=== PATIENT | male | born 1940 | race Caucasian/White ===

== ENCOUNTER 2018-06-04 08:19 | Inpatient (IN) ==
--- NOTE | 2018-05-14 11:55 | Anesthesiology Consultation ---
Date of Service May 14, 2018 Assessment & Plan (1) Encounter for pre-operative examination: Chart Review Chart Review: Acceptable Risk for Surgery and Patient seen in Pre Admission Testing Teaching & Discussion Pre-Anesthesia Teaching/Discussion Notes: Instructed NPO after midnight before surgery,except medications with 15 cc of water. Medication instructions provided according to the PAT guidelines. History Surgery Operation Date: 06/04/18 09:55 Proposed Procedures p L4-L5 Decompression and Fusion - Vivek Costa DO Height/Weight Height: 5 ft 8 in Weight: 76.1 kg Allergies Allergy/AdvReac Type Severity Reaction Status Date / Time No Known Allergies Allergy Verified 03/27/18 12:07 Medications Home Medications Medication Instructions Recorded Confirmed Last Taken lisinopril 20 mg PO QAM 01/11/18 05/10/18 03/27/18 simvastatin 80 mg PO HS 01/11/18 05/10/18 03/26/18 aspirin 81 mg PO QAM 03/27/18 05/10/18 03/27/18 Past Medical History Medical History Hearing deficit WEARS HEARING AIDS Hyperlipidemia Hypertension Osteoarthritis Past Surgical History Surgical History History of colonoscopy 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= SAB X 1 AT [facility] 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 Hx of tooth extraction Past Anesthesia History No Hx of Anesthesia Complications and No Family Hx of Anesthesia Complications History of PONV No Motion Sickness Screening History of Motion Sickness: No Social History Smoking Status: Former smoker tobacco type: cigarettes Smoking cigarettes per day: HX OF SOCIAL USE, QUIT >30 YEARS AGO Do You Dip or Chew Tobacco: No Hx Alcohol Use: Yes alcohol intake frequency: holidays/special occasions only Hx Substance Use: No substance use type: does not use Exercise / Class Metabolic Activity III < 4 Walking/Shop/Light housework Review of Systems LBP with intermittent LLE radiculopathy. Patient denies chest pain, shortness of breath, reflux, cough, wheezing, palpitations. Physical Exam Vital Signs VITALS BP 108/68 P 66 TEMP 97.7 SP02 95%RA RESP 20 PHYSICAL Mildly decreased cervical extension Full TMJ range of motion. TMD 3.5 finger breaths Mallampati Score 2 Dentition: full dentures on upper; partial on lower; only three remaining teeth on lower Lungs: clear throughout to auscultation Cardiac: regular rate and rhythm, no murmurs noted Spine: normal Carotid arteries: negative bruit Extremities: no edema, s/p left index finger amputation Testing Electrocardiogram Date: 01/17/18 Findings: + NSR @ (60) Chest X-Ray Date: 01/17/18 Findings: + NAD Laboratory Results 05/14/18 12:12 05/14/18 12:12 Blood Type A Positive 05/14/18 12:12 Antibody Screen NEGATIVE 05/14/18 12:12 PT 10.6 Seconds (9.0-12.0) 05/14/18 12:12 INR 1.0 (0.9-1.1) 05/14/18 12:12 APTT 24.1 Seconds (21.0-31.0) 05/14/18 12:12 Urine Color Yellow 05/14/18 Unknown Urine Appearance Clear (Clear) 05/14/18 Unknown Urine pH 6.5 (4.5-7.5) 05/14/18 Unknown Ur Specific [place] 1.017 (1.000-1.030) 05/14/18 Unknown Urine Protein Negative (Negative) 05/14/18 Unknown Urine Glucose (UA) Negative (Negative) 05/14/18 Unknown Urine Ketones Negative (Negative) 05/14/18 Unknown Urine Nitrite Negative (Negative) 05/14/18 Unknown Ur Leukocyte Esterase Negative (Negative) 05/14/18 Unknown
--- NOTE | 2018-05-14 12:10 | PAT Medication Instructions ---
Medication Instructions Date of Service May 14, 2018 Home Medications Aspirin 81mg PO QAM Lisinopril 20mg PO QAM Simvastatin 80mg PO HS DO NOT take the morning of surgery Lisinopril 20mg PO QAM Take morning of surgery With a small sip of water, OTHERWISE NOTHING TO EAT OR DRINK AFTER MIDNIGHT: Aspirin 81mg PO QAM Take evening before surgery Simvastatin 80mg PO HS Other Notes If you have any questions please call us at [phone] or [phone] or [phone] or [phone]
[2018-05-14 13:09] LABS: Basophils # (auto) 0.04 K/uL (0-0.2); Basophils % (auto) 0.6 %; Eosinophils # (auto) 0.27 K/uL (0-0.5); Eosinophils % (auto) 3.9 %; Hematocrit (blood only) 44.3 % (42-52); Hemoglobin 14.3 g/dL (14.0-18.0); Immature Granulocytes # (auto) 0.01 K/uL (0.00-0.02); Immature Granulocytes % (auto) 0.1 %; Lymphocytes # (auto) 1.79 K/uL (1.2-3.4); Lymphocytes % (auto) 25.7 %; Mean Corpuscular Hgb Conc 32.3 g/dL (32-36); Mean Platelet Volume 10.5 fL (7.4-10.4); Monocytes # (auto) 0.79 K/uL (0.11-0.59); Monocytes % (auto) 11.3 %; Neutrophils # (auto) 4.07 K/uL (1.4-6.5); Neutrophils % (auto) 58.4 %; Platelet Count 232 K/uL (130-400); RDW Coefficient of Variation 14.3 % (11.5-14.5); RDW Standard Deviation 46.4 fL (36.4-46.3); Red Blood Count 4.98 M/uL (4.7-6.1); White Blood Count 6.97 K/uL (4.8-10.8)
[2018-05-14 13:14] LABS: Appearance Urine Clear (Clear); Bilirubin Urine Negative (Negative); Blood Urine Negative (Negative); Color Urine Yellow; Glucose Urine UA Negative (Negative); Ketones Urine Negative (Negative); Leukocyte Esterase Urine Negative (Negative); Nitrite Urine Negative (Negative); Protein Urine Negative (Negative); Specific Gravity Urine 1.017 (1.000-1.030); Urobilinogen Urine Negative (Negative); pH Urine 6.5 (4.5-7.5)
[2018-05-14 13:27] LABS: Partial Thromboplastin Ratio 0.9; Partial Thromboplastin Time 24.1 Seconds (21.0-31.0); Prothrombin Time 10.6 Seconds (9.0-12.0)
[2018-05-14 13:51] LABS: BUN Creatinine Ratio 15.9 (10-20); Creatinine Clr Calc Pharmacy 62.7 ml/min; Est GFR (African American) 87.5; Est GFR (Non-African American) 75.5
[~2018-06-04 08:19] MED LIST: ACETAMINOPHEN 500 MG TAB PO SCH; CEFAZOLIN 1000MG 1,000 MG/7.5 ML SYR IV SCH; CeleBREX 200 MG CAP PO SCH; GABAPENTIN 300 MG PO SCH; HYDROmorphone INJ 2 MG/ML SYR/VIAL ONE; LR 15ML/HR IV SCH; MIDAZOLAM HCL 1 MG/ML 2ML VIAL ONE; fentaNYL citrate 100 MCG/2 ML VIAL ONE
[2018-06-04] MEDS ORDERED: HYDROmorphone INJ 2 MG/ML SYR/VIAL ONE (08:35)
[2018-06-04] MEDS ORDERED: fentaNYL citrate 100 MCG/2 ML VIAL ONE ×3 (08:35→11:33)
[2018-06-04] MEDS ORDERED: NEOSTIGMINE METHYLSULFATE 1 MG/ML 10ML VIAL ONE (08:36)
[2018-06-04] MEDS ORDERED: DEXAMETHASONE SOD INJ 4 MG/ML VIAL ONE (08:36)
[2018-06-04] MEDS ORDERED: LIDOCAINE HCL 2% 2 ML VIAL/AMP(20MG/ML) INFIL ONE (08:36)
[2018-06-04] MEDS ORDERED: ONDANSETRON INJ 2 MG/ML 2 ML VIAL ONE ×2 (08:36→13:08)
[2018-06-04] MEDS ORDERED: GLYCOPYRROLATE 0.2 MG/ML VIAL ONE (08:36)
[2018-06-04] MEDS ORDERED: PROPOFOL IV EMULSION 10 MG/ML 20 ML VIAL IV ONE (08:36)
[2018-06-04] MEDS ORDERED: LARYING-O-JET KIT (LTA) ONE ×2 (08:36→13:39)
[2018-06-04] MEDS ORDERED: ONDANSETRON INJ 2 MG/ML 2 ML VIAL IV PRN ×2 (09:21→14:26)
[2018-06-04] MEDS ORDERED: ePHEDrine sulfate 50 MG/ML AMP IV PRN (09:21)
[2018-06-04] MEDS ORDERED: HYDROmorphone INJ 1 MG/ML SYRINGE IV PRN (09:21)
[2018-06-04] MEDS ORDERED: LABETALOL HCL IV 5 MG/ML 20ML IV PRN (09:21)
[2018-06-04] MEDS ORDERED: MEPERIDINE HCL 25 MG/ML CARP IV PRN (09:21)
[2018-06-04] MEDS ORDERED: fentaNYL citrate 100 MCG/2 ML VIAL IV PRN (09:21)
[2018-06-04] MEDS ORDERED: PHENYLEPHRINE 100MCG/ML 5ML SYR IV PRN (09:21)
[2018-06-04] MEDS ORDERED: ATROPINE SULFATE 0.1 MG/ML 10ML SYR IV PRN (09:21)
--- NOTE | 2018-06-04 10:34 | History & Physical Bridge Note ---
Date of Service June 04, 2018 History & Physical Bridge Note I have examined the patient, reviewed the History & Physical and in the interval since the performance of the History & Physical I have noted the following changes of clinical significance: no changes noted
--- NOTE | 2018-06-04 10:36 | History & Physical Report ---
Date of Service June 04, 2018 Assessment & Plan (1) Spinal stenosis, lumbar region with neurogenic claudication: L4-5 decompression fusion Present on Admission?: Yes History of Present Illness Chief Complaint: Back and leg pain Primary Care Provider: Joyce Guadarrama This is a 77-year-old male that presents with back and leg pain. After failing extensive course of nonoperative care is here for surgical intervention. Allergies Allergy/AdvReac Type Severity Reaction Status Date / Time No Known Allergies Allergy Verified 06/04/18 08:46 Home Medications Home Medications Medication Instructions Recorded Confirmed Type lisinopril 20 mg PO QAM 01/11/18 05/10/18 History simvastatin 80 mg PO HS 01/11/18 06/04/18 History aspirin 81 mg PO QAM 03/27/18 05/10/18 History Past Med/Surg History Social History Preferred Language: Cambodian Communication Ability: Effective Ceo Na Required: No Beliefs That Will Affect Care: None Current Living Situation: Significant Other Other Information That Helps Us Care for You: No Feels Safe at Home: Yes Safety Concerns: Feels Safe At This Time Smoking Status: Former smoker Hx Alcohol Use: Yes Hx Substance Use: No Physical Exam Vital Signs (Past 24 Hours): Last Vital Signs Temp 36.4 C L 06/04/18 08:49 Pulse 68 06/04/18 08:49 Resp 16 06/04/18 08:49 BP 165/81 H 06/04/18 08:49 Pulse Ox 97 06/04/18 08:49 Results & Data Medications Administered Acetaminophen (Tylenol) 1,000 mg PO PREOP MAGDI Stop: 06/04/18 18:00 Last Admin: 06/04/18 09:03 Dose: 1,000 mg Documented by: [id number] Celecoxib (Celebrex) 200 mg PO PREOP MAGDI Stop: 06/04/18 18:00 Last Admin: 06/04/18 09:04 Dose: 200 mg Documented by: [id number] Gabapentin (Neurontin) 300 mg PO PREOP MAGDI Stop: 06/04/18 18:00 Last Admin: 06/04/18 09:03 Dose: 300 mg Documented by: [id number] Lactated Ringer's (Lr) 1,000 mls @ 15 mls/hr IV .Q24H MAGDI Stop: 06/05/18 05:59 Last Admin: 06/04/18 09:03 Dose: 15 mls/hr Documented by: [id number]
[2018-06-04] MEDS ORDERED: BUPIVACAINE/EPINEPHRINE 0.5% MPF 1:200,000 30 ML VIAL ONE (10:54)
[2018-06-04] MEDS ORDERED: BACITRACIN INJ 50,000 UNIT VIAL ONE (10:54)
[2018-06-04] MEDS ORDERED: CEFAZOLIN 250 MG/ML 1 GM VIAL ONE (11:20)
[2018-06-04] MEDS ORDERED: PHENYLEPHRINE 100MCG/ML 5ML SYR ONE (11:53)
[2018-06-04] MEDS ORDERED: ePHEDrine sulfate 50 MG/ML SYR ONE (11:53)
[2018-06-04] MEDS ORDERED: FLOSEAL HEMOSTATIC MATRIX 10ML TOP ONE (11:55)
[2018-06-04] MEDS ORDERED: KETOROLAC 30 MG/ML VIAL ONE (12:44)
--- NOTE | 2018-06-04 12:46 | Operative Report ---
Post Operative Report Pre & Post Diagnosis Operation Date: 06/04/18 10:35 Pre-Op Diagnosis: Spinal stenosis, lumbar region with neurogenic claudication Post-Op Diagnosis: Spinal stenosis, lumbar region with neurogenic claudication Procedure Operation Date: 06/04/18 10:35 Actual Procedures #1 lumbar decompression medial facetectomy foraminotomy L3-4 L4-5 per #2 posterior spinal fusion L4-5 per #3 placed posterior instrumentation L4-5 per #4 interbody fusion L4-5 per #5 placement of titanium 12 x 26 mm cage L4-5. #6 placement of local autograft in the posterior lateral gutters. #7 placement Feese collagen sponge bone mass graft in the posterior lateral gutters and ostial amp in the interbody space. Surgeon Vivek Costa DO Hardening Machine Operator Helper Shannon Green Estimated Blood Loss 150 Findings Consistent with Post-Op Diagnosis Specimens None Description of Procedure Patient was met with preoperatively case discussed all questions addressed. After informed consent obtained patient was taken to the operative suite underwent intubation and placed in a prone position on the Kody table on top of the Vishnu frame. All bony prominences well-padded eyes inspected to ensure no external pressure placed upon the bed at this point the lumbar spine was prepped and draped in the normal sterile fashion. Sharp dissection with the assistance of Bovie cautery was performed down to and exposing the lamina and transverse processes of L4-5. From a caudal cephalad fashion complete laminectomy of L4 partial laminectomy of L3 was performed including bilateral medial facetectomies foraminotomies addressing severe stenosis as well as bilateral facet cyst. They removed in their entirety for complete decompression. Pedicle fusion and placed in L4 and L5 bilaterally with assistance of fluoroscopy the purposes nikos placed by way of a transforaminal approach on the left complete discectomy was performed in plate coated to subcortical bleeding bone and a 12 x 26 mm titanium cage filled with ostium bone graft tapped in position. The rods were then locked in final position bilaterally transverse process of L4 and L5 bur to subcortical bleeding bone. Infuse collagen sponge master graft local autograft placed in the posterior lateral gutters. 15 round PARADISE drain inserted. The incision was then closed with 1 Vicryl in the fascia 2-0 Vicryl subtenons in 4 Monocryl for final skin closure. Steri-Strip sterile dressings placed. Patient will continue PACU stable history please note Shannon Green present throughout the entire procedure involved in patient positioning complex portions of the surgery and final skin closure. I attest to the content of the Intraoperative Record and any orders documented therein. Any exceptions are noted below.
--- NOTE | 2018-06-04 13:03 | Fluoroscopy Report ---
FL lumbar spine 2-3V HISTORY: 77 years-old Male L4-5 DECOMPRESSION/FUSION status post fusion of the lower cervical spine. Chronic low back pain COMPARISON: None available TECHNIQUE: 2 spot fluoroscopic images of the lumbar spine were obtained utilizing 9.5 seconds fluoros copy time FINDINGS: Prior laminectomy with discectomy and posterior interbody nikos and screw fusion at L4-L5. Alignment ap pears satisfactory. Disc space narrowing with spondylitic spurring noted at L5-S1 and L3-L4. IMPRESSION: Fluoroscopic images as above. Please see operative report for further details. The above report was generated using voice recognition software. It may contain grammatical, syntax o r spelling errors. Electronically signed by: Armani Ortega M.D. 06/04/2018 1:02 PM
[2018-06-04] MEDS ORDERED: METOCLOPRAMIDE HCL INJ 5 MG/ML 2 ML VIAL ONE (13:08)
[2018-06-04] MEDS ORDERED: ESMOLOL HCL INJ 10 MG/ML 10ML VIAL IV ONE (13:08)
--- NOTE | 2018-06-04 13:35 | Anesthesiology Progress Note ---
Date of Service June 04, 2018 Anesthesia Post Procedure Vital Signs Vital Signs: Temp Pulse Pulse Resp BP Pulse Ox 06/04/18 13:30 65 21 138/64 98 06/04/18 13:20 62 12 141/68 H 98 06/04/18 13:10 76 14 150/67 H 98 06/04/18 13:01 36.5 C 78 7 L 144/75 H 99 06/04/18 08:49 36.4 C L 68 16 165/81 H 97 Pain Intensity Back: Pain Intensity: 3 Notes Mental Status: alert / awake / arousable Patient Amnestic to Procedure: Yes Nausea / Vomiting: adequately controlled Pain: adequately controlled Airway Patency, RR, SpO2: stable & adequate BP & HR: stable & adequate Hydration State: stable & adequate Anesthetic Complications: no major complications apparent and Pt Satisfied with anesthetic care Notes: The patient is awake and his vitals are stable.
[2018-06-04] MEDS ORDERED: MAGNESIUM HYDROXIDE SUSP 30 ML UDC PO PRN (14:26)
[2018-06-04] MEDS ORDERED: OXYCODONE HCL IR 5 MG TAB (IMMEDIATE RELEASE) PO PRN (14:26)
[2018-06-04] MEDS ORDERED: METOCLOPRAMIDE HCL INJ 5 MG/ML 2 ML VIAL IV PRN (14:26)
[2018-06-04] MEDS ORDERED: LORazepam 0.5 MG/1 ML VIAL IV PRN (14:26)
[2018-06-04] MEDS ORDERED: DO NOT ADMINISTER FLU VACCINE PRN (14:26)
[2018-06-04] MEDS ORDERED: ONDANSETRON 4 MG TAB PO PRN (14:26)
[2018-06-04] MEDS ORDERED: ACETAMINOPHEN 1,000 MG/100 ML VIAL IV PRN (14:26)
[2018-06-04] MEDS ORDERED: ALUMINUM/MAGNESIUM SUSP 30 ML UDC PO PRN (14:26)
[2018-06-04] MEDS ORDERED: LORazepam 0.5 MG TAB PO PRN (14:26)
[2018-06-04] MEDS ORDERED: SOD PHOSPHATE/SOD BIPHOSPHATE ENEMA 132 ML BTL PR PRN (14:26)
[2018-06-04] MEDS ORDERED: BISACODYL 10 MG SUPP PR PRN (14:26)
[2018-06-04] MEDS ORDERED: DO NOT ADMINISTER PNEUMOCOCCAL VACCINE PRN (14:26)
[2018-06-04] MEDS ORDERED: FAMOTIDINE 20 MG TAB PO PRN (14:26)
[2018-06-04] MEDS ORDERED: PROMETHAZINE HCL 12.5 MG in SODIUM CHLORIDE 0.9% 50 ML IV PRN (14:26)
[2018-06-04] MEDS ORDERED: HYDROmorphone INJ 0.5 MG/0.5 ML SYR IV PRN (14:26)
[2018-06-04] MEDS: CEFAZOLIN 2000MG 2,000 MG/15 ML SYR IV SCH (18:19)
[2018-06-04] MEDS: DOCUSATE SODIUM/SENNA 50/8.6MG TAB PO SCH (20:53)
[2018-06-04] MEDS: SIMVASTATIN 80 MG TAB PO SCH (20:53)
[2018-06-05] MEDS: LACTATED RINGER'S 1,000 ML IV SCH ×5 (00:35→14:35)
[2018-06-05] MEDS: CEFAZOLIN 2000MG 2,000 MG/15 ML SYR IV SCH (02:19)
[2018-06-05] MEDS: ACETAMINOPHEN 500 MG TAB PO PRN ×2 (02:25→21:46)
[2018-06-05] MEDS: POLYETHYLENE (MIRALAX) 17 GM PACK PO SCH ×4 (06:00→23:38)
[2018-06-05 06:28] LABS: Basophils # (auto) 0.01 K/uL (0-0.2); Basophils % (auto) 0.1 %; Hematocrit (blood only) 38.7 % (42-52); Hemoglobin 12.5 g/dL (14.0-18.0); Immature Granulocytes # (auto) 0.03 K/uL (0.00-0.02); Immature Granulocytes % (auto) 0.3 %; Lymphocytes % (auto) 8.5 %; Mean Corpuscular Hgb Conc 32.3 g/dL (32-36); Mean Platelet Volume 9.8 fL (7.4-10.4); Monocytes # (auto) 1.05 K/uL (0.11-0.59); Monocytes % (auto) 11.2 %; Neutrophils # (auto) 7.52 K/uL (1.4-6.5); Neutrophils % (auto) 79.9 %; Platelet Count 162 K/uL (130-400); RDW Coefficient of Variation 14.6 % (11.5-14.5); RDW Standard Deviation 47.9 fL (36.4-46.3); Red Blood Count 4.35 M/uL (4.7-6.1); White Blood Count 9.41 K/uL (4.8-10.8)
[2018-06-05 07:02] LABS: Calcium 8.6 mg/dl (8.5-10.1); Creatinine Clr Calc Pharmacy 67.6 ml/min; Est GFR (African American) 95.8; Est GFR (Non-African American) 82.7; Potassium 4.3 mmol/L (3.5-5.1)
--- NOTE | 2018-06-05 07:29 | Anesthesiology Progress Note ---
Date of Service June 05, 2018 Anesthesia Post Procedure Vital Signs Vital Signs: Temp Pulse Pulse Pulse Resp BP Pulse Ox 06/05/18 06:49 36.6 C 55 L 18 149/75 H 100 06/05/18 03:27 36.4 C L 65 16 118/71 99 06/04/18 23:34 36.4 C L 62 15 128/68 97 06/04/18 19:07 36.4 C L 61 18 137/74 99 06/04/18 17:23 36.3 C L 66 18 124/70 98 06/04/18 16:14 36.4 C L 50 L 18 143/81 H 99 06/04/18 15:22 36.4 C L 55 L 18 163/81 H 97 06/04/18 14:39 36.5 C 56 L 18 149/74 H 96 06/04/18 14:27 36.4 C L 60 16 137/74 98 06/04/18 14:00 56 L 18 138/67 97 06/04/18 13:45 55 L 13 140/74 98 06/04/18 13:40 36.4 C L 56 L 14 134/72 98 06/04/18 13:30 65 21 138/64 98 06/04/18 13:20 62 12 141/68 H 98 06/04/18 13:10 76 14 150/67 H 98 06/04/18 13:01 36.5 C 78 7 L 144/75 H 99 06/04/18 08:49 36.4 C L 68 16 165/81 H 97 Pain Intensity Back: Pain Intensity: 0 Notes Mental Status: alert / awake / arousable Patient Amnestic to Procedure: Yes Nausea / Vomiting: adequately controlled Pain: adequately controlled Airway Patency, RR, SpO2: stable & adequate BP & HR: stable & adequate Hydration State: stable & adequate Anesthetic Complications: no major complications apparent and Pt Satisfied with anesthetic care
[2018-06-05] MEDS: LISINOPRIL 20 MG TAB PO SCH ×2 (08:51→09:47)
[2018-06-05] MEDS: ASPIRIN 81 MG ECTAB PO SCH (08:51)
--- NOTE | 2018-06-05 11:36 | Orthopedic Progress Note ---
Date of Service June 05, 2018 Assessment & Plan (1) Spinal stenosis, lumbar region with neurogenic claudication: At this time will initiate physical therapy advance his bowel regiment anticipate discharge home in the next few days. Present on Admission?: Yes Subjective Back pain is controlled leg symptoms improved Physical Exam Vital Signs (Past 24 Hours): Last Vital Signs Temp 37.0 C 06/05/18 11:00 Pulse 72 06/05/18 11:00 Resp 18 06/05/18 11:00 BP 142/74 H 06/05/18 11:00 Pulse Ox 95 06/05/18 11:00 Physical Exam: Patient has good strength testing appears comfortable.
[2018-06-05] MEDS: DOCUSATE SODIUM/SENNA 50/8.6MG TAB PO SCH (21:21)
[2018-06-05] MEDS: SIMVASTATIN 80 MG TAB PO SCH (21:21)
[2018-06-06] MEDS: POLYETHYLENE (MIRALAX) 17 GM PACK PO SCH ×2 (04:45→11:54)
[2018-06-06] MEDS: TRAMADOL HCL 50 MG TABLET PO PRN ×2 (07:06→12:33)
[2018-06-06] MEDS: ASPIRIN 81 MG ECTAB PO SCH (07:07)
[2018-06-06] MEDS: LISINOPRIL 20 MG TAB PO SCH (07:07)
--- NOTE | 2018-06-06 12:19 | Discharge Summary ---
Date of Service June 06, 2018 Admission HPI Per Admitting Provider This is a 77-year-old male that presents with back and leg pain. After failing extensive course of nonoperative care is here for surgical intervention. Principal Diagnosis Lumbar spinal stenosis with neurogenic claudication Discharge Data Allergies Allergy/AdvReac Type Severity Reaction Status Date / Time No Known Allergies Allergy Verified 06/04/18 08:46 Consultations 06/04/18 14:26 Consult Case Management - Discharge Planning Routine Procedures Performed Operation Date: 06/04/18 10:35 Actual Procedures p L4-L5 Decompression and Fusion, Interbody Fusion L4-L5; Application of Osteoamp and Bone Morphogenetic Protein(Not Applicable) - Vivek Costa DO Ordered Studies 06/04/18 10:35 FL fluoroscopy <1hr Routine [place] lumbar spine 2-3V Routine Hospital Course (1) Spinal stenosis, lumbar region with neurogenic claudication: Patient underwent lumbar decompression fusion tolerated this well was taken to the orthopedic floor postoperative. Postop day 1 he was up and ambulating nicely. Progressive postop day #2. Pain well controlled. Subsequently discharged home. Discharge orders and instructions found in the chart for further review. Total Time Total Time Spent Total Time Spent (In Minutes): Not applicable Discharge Plan Discharge Items Patient Disposition: Home - Self-Care Reason For Visit: Spinal Stenosis, Lumbar Region without Neurogenic Discharge Diagnosis: lumbar stenosis Discharge Goals: Improve function Activity: Per 'Additional Instructions' section Non-emergency contact: Primary Care Provider Call non-emergency contact if: you have any medication questions Follow-up/Referrals: Joyce Guadarrama PA-C [Primary Care Provider] - Diet: Regular Addtl Provider Instructions: ACTIVITY RECOMMENDATIONS: SELF CARE INSTRUCTIONS AFTER THORACIC/LUMBAR FUSIONS 1. You may walk to your tolerance. It is good exercise for your legs and back. Expect some back and intermittent leg aches and pains. 2. You may perform "counter-top" level activities (make a sandwich, nadege with a project, etc.). 3. No bending or lifting of more than 10 pounds or back twisting of any nature (roll like a log when turning in bed). 4. You may ride in a car for 20-30 minutes at a time. No driving until after your first visit with your doctor. 5. Frequent changes of position and restricting sitting to 30 minutes at a time will help limit the amount of back spasms and stiffness you may experience. 6. You may discontinue the use of ambulatory aids (cane, crutches, etc.) once your strength and confidence allow. 7. You may monkey trainer the shower and let water strike your incision when you arrive home at least once daily. Do not take a tub bath, sit in a hot tub or go into a swimming pool until after your first recheck in the office. SPECIAL CARE INSTRUCTIONS: VERY IMPORTANT TO READ AND REVIEW A. Your surgical incision has been closed with a cosmetic suture under the skin that will dissolve in about 6 weeks. In 14 days, you can use a pair of clean scissors and cut the suture that is left outside of the skin at the ends of your incision. 1. The small skin tapes can be removed 7 days after surgery if they have not fallen off by that point. 2. You may keep the wound open to air as much as possible to promote healing after post-op day number 5 unless told otherwise by your doctor. 3. If you think the wound looks like it is becoming infected (redness or worsening drainage) and/or you are experiencing fever, chill or worsening back pain and muscle spasms, contact the office so that we may norma luate you as soon as possible. B. Complications are uncommon, but please contact us if you have any signs or symptoms of: 1. wound infection (fever higher than 102.5 degrees F, redness, separation of wound, drainage, or increasing pain from the incision) 2. blood clots in legs (pain, swelling, redness and warmth in legs) 3. urinary tract infection (fever higher than 102.5 degrees F, burning upon urination or increased frequency of urination) 4. nerve problems (inability to walk on your toes or heels, numbness, loss of bowel or bladder control) 5. any other symptoms that concern you C. Please call the office at if you have any concerns or questions about your operation or recovery. D. No smoking! Smoking drastically decreases the chance of a solid fusion. E. Do not take any anti-inflammatory medications (Indocin, Advil, Motrin, As pirin, Naprosyn, etc.) as these may inhibit the chance of a solid fusion. Tylenol is okay to take for pain. MANAGING PAIN AFTER SPINAL SURGERY 1. Narcotic medication is intended for short-term use and will be provided for surgical pain. Surgical pain usually lasts for a period of 4-6 weeks. Narcotic medication includes Percocet, Vicodin, Darvocet, Tylenol #3 or Lortab. 2. Longer-term pain is more appropriately treated with non-narcotic medication such as Tylenol ES. 3. Muscle spasm is not appropriately treated with narcotics. Muscle relaxers such as Soma, Flexeril or Skelaxin can be used along with Tylenol ES. 4. Remember that we all live with some "aches and pains". This is not unusual or uncommon after an injury or as we get older. a. Back pain is expected and may include muscle spasms for 4 to 6 weeks after surgery. The pain should gradually improve. If the pain worsens for no apparent reason, please contact the office. b. Intermittent leg pain may also be experienced and should not be concerned about unless it worsens for no apparent reason. If so, please contact the office. 5. We will provide appropriate medication within the normal guidelines of their prescribed use. We will also be very cautious and aware of potential abuse and extended duration of patients' medication needs. a. Pain medications are for your comfort and to assist with sleep and rest so that the tissue can heal. They are not provided in order to return to normal activity and should not be used through the day. To do so or worsening pain at night can result from ongoing tissue damage and development of tolerance to the prescribed medicine. 6. Please allow 2-3 days to process refills. Prescriptions will not be mailed but must be picked up at the office. FOLLOW UP VISIT: Keep your scheduled follow-up appointment. Any questions, please call the office at . Prescriptions: New tramadol 50 mg Tablet 50 mg PO Q4H PRN (Reason: Pain, Moderate) Qty: 30 RF: 0 oxycodone 5 mg Tablet 5 mg PO Q4H PRN (Reason: Pain) Qty: 30 RF: 0 Continued lisinopril 20 mg Tablet 20 mg PO QAM RF: 0 simvastatin 80 mg Tablet 80 mg PO HS RF: 0 aspirin 81 mg Tablet,Delayed Release (Dr/Ec) 81 mg PO QAM RF: 0 Stand-Alone Forms: [facility], Opioid Pain Management Discharge Orders: Discharge Order (Routine); Ordered 06/06/18 Ordered By: Vivek Costa Admission Data Admit Date/Time: 06/04/18 12:53 Attending Provider: Vivek Costa Admit Provider: Vivek Costa Primary Care Provider: Joyce Guadarrama Service: Surgical Services Other Interventions: Discharge Summary Assessment (RN) Last Done: 06/06/18 12:07
== END 2018-06-06 14:21 | disposition home or self-care (01) | DRG 455 ==
LOC: ASU 08:19 → 3E 12:53

== ENCOUNTER 2024-08-23 06:11 | Inpatient (IN) ==
--- NOTE | 2024-08-05 12:57 | PAT Medication Instructions ---
Medication Instructions Date of Service August 05, 2024 Home Medications lisinopril 20 mg tablet 20 mg PO QAM aspirin 81 mg tablet,delayed release 81 mg PO QAM atorvastatin 10 mg tablet 50 mg PO HS naproxen sodium 220 mg tablet (Aleve) 220 mg PO BID ASK your surgeon for instructions naproxen sodium 220 mg tablet (Aleve) 220 mg PO BID ASK your prescriber and surgeon aspirin 81 mg tablet,delayed release 81 mg PO QAM DO NOT take the morning of surgery lisinopril 20 mg tablet 20 mg PO QAM Take evening before surgery atorvastatin 10 mg tablet 50 mg PO HS OTHERWISE NOTHING TO EAT OR DRINK AFTER MIDNIGHT Other Notes If you have any questions please call us at [phone] or [phone] or [phone] or [phone]
--- NOTE | 2024-08-09 11:06 | Anesthesiology Consultation ---
Date of Service August 09, 2024 Assessment & Plan (1) Encounter for pre-operative examination: Chart Review Chart Review: Acceptable Risk for Surgery (pending surgeon ordered PCP clearance ) and Patient seen in Pre Admission Testing - Awaiting PCP clearance (will be seeing the week of 08/12/24) (Joyce Pedraza PA-C- [facility]) Per PAT appt on 08/09/24, no recent illness/disease exposures, illness related symptoms, or recent illness/disease positive tests. Will leave to surgeon's discretion if preop Covid testing needed L4-5 decompression with posterior fusion, IBC 06/04/18= Done under GA with Grade 1 view with MAC #3. ETT #8.0. Teaching & Discussion Pre-Anesthesia Teaching/Discussion Notes: Instructed NPO after midnight before surgery,except medications with 15 cc of water. Medication instructions provided according to the [facility] guidelines. History Surgery Operation Date: 08/23/24 11:55 Proposed Procedures p C5 Corpectomy, C4-C6 Fusion with Spinal Cord Monitoring - Vivek Costa DO Height/Weight Height: 5 ft 7 in Weight: 72.1 kg Allergies Allergy/AdvReac Type Severity Reaction Status Date / Time No Known Allergies Allergy Verified 08/05/24 09:09 Medications Home Medications Medication Instructions Recorded Confirmed Last Taken lisinopril 20 mg tablet 20 mg PO QAM 01/11/18 08/05/24 02/25/23 aspirin 81 mg tablet,delayed 81 mg PO QAM 03/27/18 08/05/24 02/25/23 release atorvastatin 10 mg tablet 50 mg PO HS 07/08/22 08/05/24 07/08/22 07:00 naproxen sodium 220 mg tablet 220 mg PO BID 07/08/22 08/05/24 07/08/22 07:00 (Aleve) 220 mg Past Medical History Medical History Hearing deficit WEARS HEARING AIDS Hyperlipidemia Hypertension Neck problem "3 discs pushing on spinal cord" per Osteoarthritis Exercise / Class Metabolic Activity III < 4 Walking/Shop/Light housework (one flight of stairs - mild SOB, no chest pain ) Past Surgical History Surgical History History of colonoscopy History of lumbar spinal fusion (2019) 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= SAB X 1 AT [facility] 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 Hx of tooth extraction Past Anesthesia History No Hx of Anesthesia Complications and No Family Hx of Anesthesia Complications History of PONV No Hx of PONV and No Hx of Motion Sickness Social History Smoking Status: Former smoker tobacco type: cigarettes Smoking cigarettes per day: HX OF SOCIAL USE, QUIT >30 YEARS AGO Do You Dip or Chew Tobacco: No Smoking End Date: 30+ yrs ago Hx Alcohol Use: Yes Alcohol type: beer alcohol intake frequency: a few times a week Hx Substance Use: No substance use type: does not use Review of Systems Patient denies chest pain, shortness of breath, dyspnea on exertion, reflux, cough, wheezing, palpitations. No hx of seizures, stroke, DC, apnea/snoring. No hx of blood clots or blood transfusions Physical Exam Vital Signs VITALS BP 111/63 P 68 TEMP 97.5 SP02 97% RESP 16 Constitutional no acute distress ENMT Mouth: no TMJ clicking Thyromental Distance: > or= 3.5 Finger Breadths (3.5) Mallampati Class: I Mouth / Teeth: 2 1. Missing 2. Missing 3. Missing 4. Missing Missing all top teeth Missing most side and molar bottom teeth and see picture Neck + limited neck extension Respiratory normal respiratory effort; no respiratory distress Auscultation: lungs clear to auscultation bilaterally; no wheezes Cardiovascular Rate/Rhythm: regular rate and regular rhythm Heart Sounds: no murmur Vessels: no carotid bruit Musculoskeletal Spine: no pain with cervical ROM Extremities: extremities normal to inspection Psychiatric Orientation: alert Lab Results Anesthesia Preop Results Results Anesthesia Widget: 2 WBC 5.21 K/ul (4.8-10.8) 08/09/24 Hgb 14.4 g/dl (14.0-18.0) 08/09/24 Hct 44.1 % (42.0-52.0) 08/09/24 Plt 203 K/uL (130-400) 08/09/24 Na 138 mmol/L (136-145) 08/09/24 K 3.8 mmol/L (3.5-5.1) 08/09/24 Cl 101 mmol/L (98-107) 08/09/24 CO2 31 mmol/L (21-32) 08/09/24 BUN 28 mg/dl (6-23) H 08/09/24 Creat 1.17 mg/dl (0.6-1.4) 08/09/24 Glucose Level 106 mg/dl (70-99(Fasting)) H 08/09/24 PT 10.9 Seconds (9.0-12.0) 08/09/24 PTT 25 Seconds (21-31) 08/09/24 INR 1.0 (0.9-1.1) 08/09/24 Urine Color Yellow 08/09/24 Urine Appearance Clear (Clear) 08/09/24 Urine pH 5.5 (4.5-7.5) 08/09/24 Urine Specific [place] 1.023 (1.000-1.030) 08/09/24 Urine Protein Negative (Negative) 08/09/24 Urine Glucose (UA) Negative (Negative) 08/09/24 Urine Ketones Trace (Negative) H 08/09/24 Urine Blood Negative (Negative) 08/09/24 Urine Nitrite Negative (Negative) 08/09/24 Urine Bilirubin Negative (Negative) 08/09/24 Urine Urobilinogen Negative (Negative) 08/09/24 Urine Leukocyte Esterase Negative (Negative) 08/09/24 Blood Type A Positive 08/09/24 Antibody Screen NEGATIVE 08/09/24 Testing Electrocardiogram Date: 08/09/24 Findings: + NSR @ (61bpm ) Normal EKG per cardio Chest X-Ray Date: 08/09/24 Findings: + NAD FINDINGS: Heart size and pulmonary vasculature are normal. Stable apical pleural thickening. No consolidation or pleural effusion. No pneumothorax. Stable scoliosis.
[2024-08-23] MEDS ORDERED: DexMEDEtomidine HCL IV 100 MCG/ML VIAL IV ONE (06:53)
[2024-08-23] MEDS ORDERED: PHENYLEPHRINE HCL 10 MG/ML VIAL ONE (06:53)
[2024-08-23] MEDS: LR 60ML/HR IV SCH (06:55)
[2024-08-23] MEDS: LR 15ML/HR IV SCH (06:55)
[2024-08-23] MEDS: ACETAMINOPHEN 500 MG TAB PO SCH (06:56)
[2024-08-23] MEDS: CeleBREX 200 MG CAP PO SCH (06:56)
[2024-08-23] MEDS: GABAPENTIN 300 MG CAP PO SCH (06:56)
[2024-08-23] MEDS ORDERED: SUCCINYLCHOLINE CHLORIDE 20 MG/ML 10 ML VIAL IV ONE (06:57)
[2024-08-23] MEDS ORDERED: ONDANSETRON INJ 2 MG/ML 2 ML VIAL IV PRN ×2 (07:00→12:06)
[2024-08-23] MEDS ORDERED: ATROPINE SULFATE 0.1 MG/ML 10ML SYR IV PRN (07:00)
[2024-08-23] MEDS ORDERED: PROMETHAZINE HCL 6.25 MG in SODIUM CHLORIDE 0.9% 50 ML IV PRN (07:00)
[2024-08-23] MEDS ORDERED: fentaNYL citrate PF 100 MCG/2 ML VIAL ONE (07:00)
[2024-08-23] MEDS ORDERED: PROPOFOL IV EMULSION 10 MG/ML 20 ML VIAL IV ONE (07:01)
[2024-08-23] MEDS ORDERED: ROCURONIUM BROMIDE 10 MG/ML 5 ML VIAL IV ONE ×2 (07:01→08:38)
[2024-08-23] MEDS ORDERED: LIDOCAINE 2% 2 ML VIAL/AMP(20MG/ML) INFIL ONE ×3 (07:01→08:59)
[2024-08-23] MEDS ORDERED: ONDANSETRON INJ 2 MG/ML 2 ML VIAL ONE (07:02)
[2024-08-23] MEDS ORDERED: DEXAMETHASONE SOD INJ 4 MG/ML VIAL ONE ×2 (07:02)
--- NOTE | 2024-08-23 07:40 | History & Physical Bridge Note ---
Date of Service August 23, 2024 History & Physical Bridge Note I have examined the patient, reviewed the History & Physical and in the interval since the performance of the History & Physical I have noted the following changes of clinical significance: no changes noted
--- NOTE | 2024-08-23 07:42 | History & Physical Report ---
Date of Service August 23, 2024 Assessment & Plan (1) Cervical radiculopathy: Plan: C5 corpectomy with C4-C6 fusion Plan C5 corpectomy with C4-C6 fusion History of Present Illness Chief Complaint: Neck and arm pain Primary Care Provider: Joyce Guadarrama This is an 83-year-old male patient describes neck and arm pain and failed course of nonoperative care is here for surgical invention. Allergies Allergy/AdvReac Type Severity Reaction Status Date / Time No Known Allergies Allergy Verified 08/23/24 06:46 Home Medications Medication Instructions Recorded Confirmed Type lisinopril 20 mg tablet 20 mg PO QAM 01/11/18 08/23/24 History aspirin 81 mg tablet,delayed 81 mg PO QAM 03/27/18 08/23/24 History release atorvastatin 10 mg tablet 50 mg PO HS 07/08/22 08/23/24 History naproxen sodium 220 mg tablet 220 mg PO BID 07/08/22 08/23/24 History (Aleve) Past Med/Surg History Problem List Calcific tendinitis of shoulder Cervical radiculopathy Cervical spine arthritis Spinal stenosis, lumbar region with neurogenic claudication Status post left hip replacement (Acute) Encounter for pre-operative examination Medical History Hearing deficit WEARS HEARING AIDS Hyperlipidemia Hypertension Neck problem "3 discs pushing on spinal cord" per Osteoarthritis Surgical History History of colonoscopy History of lumbar spinal fusion (2019) 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= SAB X 1 AT [facility] 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 Visual Impairment: No Limitations Fur Polisher Required: No Beliefs That Will Affect Care: None Current Living Situation: Spouse Feels Safe at Home: Yes Assistive Devices: Glasses, Hearing Aid - Bilateral and Other Assistive Devices Comment: has partial, only has 3 teeth Physical Exam Physical Exam: Patient is alert and oriented heart regular rhythm Lungs clear Results & Data Results & Data Vital Signs (Past 12 Hours) Vital Signs Temp Pulse Resp BP Pulse Ox O2 Del Method 08/23/24 06:30 36.0 C L 67 20 135/80 95 Room Air
[2024-08-23] MEDS: ceFAZolin 2000MG 2,000 MG/15 ML SYR IV SCH ×2 (07:50→15:25)
[2024-08-23] MEDS ORDERED: PROPOFOL IV EMULSION 10 MG/ML 100 ML VIAL IV ONE (08:22)
[2024-08-23] MEDS ORDERED: SUGAMMADEX SODIUM 200 MG/2 ML VIAL IV ONE (08:30)
[2024-08-23] MEDS: FLOSEAL HEMOSTATIC MATRIX 10ML TOP ONE (09:10)
[2024-08-23] MEDS: ceFAZolin 330 MG/ML 1 GM VIAL ONE (09:10)
--- NOTE | 2024-08-23 09:37 | Operative Report ---
Post Operative Report Pre & Post Diagnosis Operation Date: 08/23/24 07:45 Pre-Op Diagnosis: #1 cervical spondylosis with myeloradiculopathy #2 cervical disc herniation Post-Op Diagnosis: Same I identified the patient and participated in the time-out.: Yes Procedure Operation Date: 08/23/24 07:45 Actual Procedures #1 anterior cervical corpectomy of C5 with bilateral foraminotomies. #2 anterior cervical arthrodesis C4-C6. #3 placement of Spira 25 mm cage C4-C6. #4 placement locally harvested morselized autograft combined with os design bone graft in the interbody cage. #5 application of K2 M plate and screws from C4 to see 6. Surgeon Vivek Costa, DO Patient Service Coordinator Afshin Falk Estimated Blood Loss 50 Findings Consistent with Post-Op Diagnosis Specimens None Indications This is an 83-year-old male who presents publish diagnosis. In light of his severe cord compression he is here for surgical intervention. Description of Procedure Patient met with identified informed consent obtained. Patient was then taken to the operative suite underwent intubation placed in spine position ingestible head Lugo head. All the prominences well-padded eyes inspected to ensure no external precipice upon them. This point the anterior cervical spine was prepped and draped in normal sterile fashion. The assistance of fluoroscopy identified the C5 vertebral body. A transverse incision was placed directly overlying this region. Blunt dissection with the assistance of bipolar electrocautery is then performed down to expose the anterior cervical spine from C4-C6. Self-retaining retractors placed. I then performed a complete discectomy of C for C5 out to the uncovertebral joints bilaterally followed by complete discectomy of C5-C6 out to the uncovertebral joints bilaterally. Stratton distracting pins were then placed in C4 and C6 to distract across the C5 vertebral body. A complete corpectomy of C5 was then performed including removal of all posterior and a fibrous longitude ligament and all herniated disc fragments. Bilateral foraminotomies performed. Endplates burred to subcortical bleeding bone and a 25 mm spiral cage filled with locally harvested morselized autograft and os design bone graft tapped into position. Distracting apparatus was removed and a K2 M plate and screws applied with the assistance of fluoroscopy. The incision was then copiously irrigated explored to ensure no damage to surrounding structures remaining bleeding. 10 round PARADISE drain inserted. The incision was then closed with 2 Vicryl in the fascia and 4 Monocryl for fascial closure. Steri-Strips sterile dressing placed. Patient waken taken to PACU in stable condition. Please note Afshin gabriel was present at the entire procedure on the patient positioning complex portion of the surgery and final skin closure. Im ordering 10 grams of Collagen Powder ([facility] A6010 Primary Dressing) and 10 bordered super absorbent ([facility] A6196 Secondary Dressing) to treat an incision wound that was caused by a spine procedure. The incision is approximately 2 cm(W) x 4 cm(L) down to the spinal column and epidural space 2 cm (D) in size and is a full thickness wound showing no signs of infection. Collagen comes in 1 gram packets so 10 packets were ordered. Given the size of the wound, with moderate exudate I chose to order a 10 day supply. The patient will be provided instructions for proper application of the collagen wound kit. The patient will be asked to apply the collagen powder daily and then cover it with sterile dressings dispensed. Collagen was selected as I expect the collagen to attract monocytes and fibroblasts, act as a sacrificial substrate for MMPs, and ultimately proved a matrix for tissue and vessel growth. The collagen will act as a primary dressing in this scenario. It is medically necessary for proper healing of these wounds to improve bioavailability and contact with each wound surface, this is also to help prevent infection of wounds and promote healing ultimately leading to a better healing outcome and limit the risk of infection. I attest to the content of the Intraoperative Record and any orders documented therein. Any exceptions are noted below.
[2024-08-23] MEDS: HYDROmorphone INJ 1 MG/ML SYRINGE IV PRN (10:23)
--- NOTE | 2024-08-23 10:41 | Fluoroscopy Report ---
FL cervical 2-3V CLINICAL HISTORY: C5 CORPECTOMY,C4-C6 FUSION COMPARISON STUDY: None FLUOROSCOPY TIME: 13 seconds FLUOROSCOPY IMAGES: 3 EXPOSURE DOSE: 3 mGy FINDINGS: Fluoroscopy was provided for lower cervical metallic fusion. IMPRESSION: Intraoperative fluoroscopy. ACT 112: Negative or not required by law. Electronically signed by: Elkin Dyer M.D. 08/23/2024 10:39 AM
[2024-08-23] MEDS ORDERED: ACETAMINOPHEN 1,000 MG/100 ML VIAL IV PRN (12:06)
[2024-08-23] MEDS ORDERED: ONDANSETRON 4 MG OD TAB PO PRN (12:06)
[2024-08-23] MEDS ORDERED: diphenhydrAMINE Capsule 25 MG CAP PO PRN (12:06)
[2024-08-23] MEDS ORDERED: dexAMETHasone 8 MG in SYRINGE 0 ML IV PRN (12:06)
[2024-08-23] MEDS ORDERED: LORazepam 2 MG/1 ML VIAL IV PRN (12:06)
[2024-08-23] MEDS ORDERED: bisacodyL 10 MG SUPP PR PRN (12:06)
[2024-08-23] MEDS ORDERED: METOCLOPRAMIDE HCL INJ 5 MG/ML 2 ML VIAL IV PRN (12:06)
[2024-08-23] MEDS ORDERED: MAGNESIUM HYDROXIDE SUSP 30 ML UDC PO PRN (12:06)
[2024-08-23] MEDS ORDERED: DO NOT ADMINISTER FLU VACCINE PRN (12:06)
[2024-08-23] MEDS ORDERED: PROMETHAZINE 12.5 MG/50.5 ML BAG IV PRN (12:06)
[2024-08-23] MEDS ORDERED: DO NOT ADMINISTER PNEUMOCOCCAL VACCINE PRN (12:06)
[2024-08-23] MEDS ORDERED: SOD PHOSPHATE/SOD BIPHOSPHATE ENEMA 132 ML BTL PR PRN (12:06)
[2024-08-23] MEDS ORDERED: hydrOXYzine HCl 25 MG TAB PO PRN (12:06)
[2024-08-23] MEDS ORDERED: LORazepam 0.5 MG TAB PO PRN (12:06)
[2024-08-23] MEDS ORDERED: HYDROmorphone INJ 1 MG/ML SYRINGE IV PRN (12:06)
[2024-08-23] MEDS ORDERED: FAMOTIDINE 20 MG TAB PO PRN (12:06)
[2024-08-23] MEDS ORDERED: RACEPINEPHRINE 2.25% NEBU SOLN 0.5 ML VIAL INH PRN (12:06)
[2024-08-23] MEDS ORDERED: NALOXONE HCL 0.4 MG/1 ML VIAL/CARP IV PRN (12:06)
[2024-08-23] MEDS ORDERED: ALUMINUM/MAGNESIUM SUSP 30 ML UDC PO PRN (12:06)
[2024-08-23] MEDS: HYDROmorphone INJ 0.5 MG/0.5 ML SYR IV PRN (12:22)
--- NOTE | 2024-08-23 12:35 | Anesthesiology Progress Note ---
Date of Service August 23, 2024 Anesthesia Post Procedure Vital Signs Vital Signs: Temp Pulse Pulse Resp BP Pulse Ox O2 Del Method 08/23/24 12:29 36.1 C L 64 14 105/67 93 Nasal Cannula 08/23/24 12:29 65 17 97 Nasal Cannula 08/23/24 12:00 36.6 C 69 16 118/71 94 Nasal Cannula 08/23/24 11:30 56 L 12 103/57 L 93 Room Air 08/23/24 11:20 57 L 12 111/55 L 93 Room Air 08/23/24 11:10 58 L 12 106/56 L 94 Room Air 08/23/24 11:00 36.3 C L 59 L 14 110/59 L 96 Room Air 08/23/24 10:50 54 L 13 117/57 L 94 Room Air 08/23/24 10:40 54 L 13 127/57 L 96 Room Air 08/23/24 10:30 62 18 125/66 96 Nasal Cannula 08/23/24 10:20 57 L 23 120/67 100 Room Air 08/23/24 10:10 61 17 120/70 100 Oxymask 08/23/24 10:00 65 14 122/63 100 Oxymask 08/23/24 09:54 36 C L 65 16 114/62 100 Oxymask 08/23/24 06:30 36.0 C L 67 20 135/80 95 Room Air O2 Flow Rate 08/23/24 12:29 2 08/23/24 12:29 2 08/23/24 12:00 2 08/23/24 11:30 2 08/23/24 11:20 2 08/23/24 11:10 2 08/23/24 11:00 2 08/23/24 10:50 2 08/23/24 10:40 2 08/23/24 10:30 2 08/23/24 10:20 08/23/24 10:10 2 08/23/24 10:00 4 08/23/24 09:54 4 08/23/24 06:30 Pain Intensity Anterior Neck: Pain Intensity: 6 Transfer of Care Handoff Completed per policy Notes Mental Status: alert / awake / arousable Patient Amnestic to Procedure: Yes Nausea / Vomiting: adequately controlled Pain: adequately controlled Airway Patency, RR, SpO2: stable & adequate BP & HR: stable & adequate Hydration State: stable & adequate Anesthetic Complications: no major complications apparent
[2024-08-23] MEDS: dexAMETHasone 6 MG in SYRINGE 0 ML IV SCH (13:13)
--- NOTE | 2024-08-23 13:37 | Consultation ---
Date of Consultation August 23, 2024 Assessment & Plan (1) Cervical radiculopathy: (2) Cervical spine arthritis: (3) Hyperlipidemia: (4) Hypertension: This is an 83 yr old M who has a significant PMH of chronic hearing loss/hard of hearing, HTN and HLD who presents for elective cervical procedure by Dr. Costa. He underwent C5 corpectomy with C4-C6 fusion and tolerated the procedure well. #Cervical Radiculopathy #S/P C4-C6 ACDF by Dr. Costa, POD #0 EBL 50ml pain, wound management per Dr. Costa pre op hgb 14, monitor h/h monitor oxygen saturation, no current dysphagia or SOB #HTN: post op blood pressure, low normal, hold lisinopril, resume in a.m. if pressure has normalized #HLD: chronic, stable, continue statin #DVT ppx: per attending Dispo: admitted to med/surg, likely d/c in a.m. per primary FULL CODE PCP: Joyce Pedraza PA-C, CHIQUIS Johnson Pt was seen and examined in collaboration with Dr. Vega, please see addendum I spent a total of 40 minutes coordinating, documenting and providing care for this patient excluding time spent in the performance of separately billed services or time spent by another provider/QHP. Thank you for this consultation. We will follow the patient with you during their hospital stay. You can reach a member of the [facility] Hospitalist Team 26/09 via hospitalist role on tiger text. Supervising Physician Co-Signing Physician Notes Patient seen and examined independently. Discussed with above provider. Patient is comfortably lying in the bed; not in distress. He denies fever, chills, chest pain, shortness of breath, abdominal pain. Plan to hold lisinopril for tomorrow a.m. ;resume if patient blood pressure trended upwards. Continue PT OT. Rest per primary I have reviewed the advanced practitioner's documentation, and I agree with, and take responsibility for the plan of care I spent a total of 20 minutes coordinating, documenting, and providing care for this patient excluding time spent in the performance of separately billed services. All of the aforementioned completed while collaborating with the assigned advanced practitioner for a full treatment plan History of Present Illness Requesting Physician: Dr. Costa Reason for Consultation: post op medical management Attending Physician: Vivek Costa, DO History of Present Illness This is an 83 yr old M who has a significant PMH of chronic hearing loss/hard of hearing, HTN and HLD who presents for elective cervical procedure by Dr. Costa. He underwent C5 corpectomy with C4-C6 fusion and tolerated the procedure well. Hx obtained from pt and his , daughter and son at bedside. He offers no post operative concerns or complaints. He denies f/c/s, chest pain, sob, n/v/d, abd pain. He is tolerating clear liquids. He denies any dysphagia. He follows with a provider, Joyce Pedraza, in [place], [place]. He states he is otherwise healthy. External records reviewed that were available. Allergies Allergy/AdvReac Type Severity Reaction Status Date / Time No Known Allergies Allergy Verified 08/23/24 06:46 Home Medications Medication Instructions Recorded Confirmed Type lisinopril 20 mg tablet 20 mg PO QAM 01/11/18 08/23/24 History aspirin 81 mg tablet,delayed 81 mg PO QAM 03/27/18 08/23/24 History release atorvastatin 10 mg tablet 50 mg PO HS 07/08/22 08/23/24 History naproxen sodium 220 mg tablet 220 mg PO BID 07/08/22 08/23/24 History (Aleve) Patient History Medical History Neck problem "3 discs pushing on spinal cord" per Osteoarthritis Hearing deficit WEARS HEARING AIDS Hypertension Hyperlipidemia Surgical History History of lumbar spinal fusion (2018) 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 Visual Impairment: No Limitations Teaching Dietitian Required: No Beliefs That Will Affect Care: None Current Living Situation: Spouse Feels Safe at Home: Yes Assistive Devices: None Assistive Devices Comment: has partial, only has 3 teeth Review of Systems Review of Systems: All systems reviewed & are unremarkable except as noted in HPI & below Physical Exam Physical Exam: Constitutional: WD/WN, appears stated age, vitals as above, NAD, sitting up in bed, pleasant, conversing easily but hard of hearing, b/l hearing aides in place Head: Normocephalic, Atraumatic Eyes: PERRL, conjunctivae normal, anicteric sclerae ENMT: external ear and nose normal, oropharynx normal Neck:+dressing CDI, PARADISE drain with serosanguineous drainage Respiratory: normal respiratory effort, 2L of oxygen via NC, CTAB No w/r/r Cardiovascular: RRR, no murmur, no edema Vessels: no JVD or carotid bruit Chest: normal inspection of chest Abdomen: normal bowel sounds, soft, nontender, no hepatosplenomegaly Musculoskeletal: no cyanosis or clubbing, arom x 4 Skin: no rashes, warm and dry normal turgor Neurologic: PERRL, EOMI, accommodation nl, no face palsy, no dysarthria CN's II-XI intact bilaterally and moves all extremities Psychiatric: A+Ox3, euthymic affect Results & Data Vital Signs (Past 12 Hours) Vital Signs Temp Pulse Pulse Resp BP BP Pulse Ox 08/23/24 13:00 68 16 113/67 95 08/23/24 12:29 36.1 C L 64 14 105/67 93 08/23/24 12:29 65 17 97 08/23/24 12:00 36.6 C 69 16 118/71 94 08/23/24 11:30 56 L 12 103/57 L 93 08/23/24 11:20 57 L 12 111/55 L 93 08/23/24 11:10 58 L 12 106/56 L 94 08/23/24 11:00 36.3 C L 59 L 14 110/59 L 96 08/23/24 10:50 54 L 13 117/57 L 94 08/23/24 10:40 54 L 13 127/57 L 96 08/23/24 10:30 62 18 125/66 96 08/23/24 10:20 57 L 23 120/67 100 08/23/24 10:10 61 17 120/70 100 08/23/24 10:00 65 14 122/63 100 08/23/24 09:54 36 C L 65 16 114/62 100 08/23/24 06:30 36.0 C L 67 20 135/80 95 O2 Del Method O2 Flow Rate 08/23/24 13:00 Nasal Cannula 1 08/23/24 12:29 Nasal Cannula 2 08/23/24 12:29 Nasal Cannula 2 08/23/24 12:00 Nasal Cannula 2 08/23/24 11:30 Room Air 2 08/23/24 11:20 Room Air 2 08/23/24 11:10 Room Air 2 08/23/24 11:00 Room Air 2 08/23/24 10:50 Room Air 2 08/23/24 10:40 Room Air 2 08/23/24 10:30 Nasal Cannula 2 08/23/24 10:20 Room Air 08/23/24 10:10 Oxymask 2 08/23/24 10:00 Oxymask 4 08/23/24 09:54 Oxymask 4 08/23/24 06:30 Room Air Laboratory Results I have independently reviewed and interpreted patient's admitting labs from 08/09 including CBC, CMP, PTT, PT/INR,UA Diagnostic Findings Cervical Spine X-Ray 08/23/24 00:00 FL cervical 2-3V CLINICAL HISTORY: C5 CORPECTOMY,C4-C6 FUSION COMPARISON STUDY: None FLUOROSCOPY TIME: 13 seconds FLUOROSCOPY IMAGES: 3 EXPOSURE DOSE: 3 mGy FINDINGS: Fluoroscopy was provided for lower cervical metallic fusion. IMPRESSION: Intraoperative fluoroscopy. ACT 112: Negative or not required by law. Electronically signed by: Elkin Dyer M.D. 08/23/2024 10:39 AM Medications Administered Current Inpatient Medications Acetaminophen (Acetaminophen 500 Mg Tab) 1,000 mg PO PREOP MAGDI Stop: 08/23/24 18:00 Last Admin: 08/23/24 06:56 Dose: 1,000 mg Acetaminophen (Acetaminophen 500 Mg Tab) 1,000 mg PO Q8H PRN PRN Reason: MILD Pain (1,2,3) & Pre PT Stop: 09/22/24 12:05 Al Hydrox/Mg Hydrox/Simethicone (Aluminum/Magnesium Susp 30 Ml Udc) 30 ml PO Q6H PRN PRN Reason: Dyspepsia Stop: 09/22/24 12:05 Aspirin (Aspirin 81 Mg Ectab) 81 mg PO QAM MAGDI Stop: 09/23/24 08:59 Atorvastatin Calcium (Atorvastatin 40 Mg Tab) 80 mg PO HS MAGDI Stop: 09/22/24 20:59 Atropine Sulfate (Atropine Sulfate 0.1 Mg/Ml 10ml Syr) 0.5 mg IV Q1M PRN PRN Reason: PACU Use-HR<40 &/or Bradycardi Stop: 08/23/24 15:00 Bisacodyl (Bisacodyl 10 Mg Supp) 10 mg SC DAILY PRN PRN Reason: Constipation Stop: 09/22/24 12:05 Celecoxib (Celebrex 200 Mg Cap) 200 mg PO PREOP MAGDI Stop: 08/23/24 18:00 Last Admin: 08/23/24 06:56 Dose: 200 mg Diphenhydramine HCl (Diphenhydramine Capsule 25 Mg Cap) 25 mg PO Q6H PRN PRN Reason: Allergic Rhinitis/Insomnia Stop: 09/22/24 12:05 Epinephrine (Racepinephrine 2.25% Nebu Soln 0.5 Ml Vial) 0.5 ml INH NOW PRN PRN Reason: If stridor present Famotidine (Famotidine 20 Mg Tab) 20 mg PO Q12H PRN PRN Reason: Dyspepsia Stop: 09/22/24 12:05 Gabapentin (Gabapentin 300 Mg Cap) 300 mg PO PREOP MAGDI Stop: 08/23/24 18:00 Last Admin: 08/23/24 06:56 Dose: 300 mg Hydromorphone HCl (Hydromorphone Inj 1 Mg/Ml Syringe) 0.25 mg IV Q5M PRN PRN Reason: PACU Use Only-Pain Stop: 08/23/24 15:00 Last Admin: 08/23/24 10:50 Dose: 0.25 mg Hydromorphone HCl (Hydromorphone Inj 0.5 Mg/0.5 Ml Syr) 0.5 mg IV Q3H PRN PRN Reason: MODERATE Pain(4,5,6)/Pre PT Stop: 09/06/24 12:05 Last Admin: 08/23/24 12:22 Dose: 0.5 mg Hydromorphone HCl (Hydromorphone Inj 1 Mg/Ml Syringe) 1 mg IV Q3H PRN PRN Reason: SEVERE Pain (7,8,9,10) Stop: 09/06/24 12:05 Hydroxyzine HCl (Hydroxyzine Hcl 25 Mg Tab) 25 mg PO Q8H PRN PRN Reason: Anxiety Stop: 09/22/24 12:05 Lactated Ringer's (Lr) 1,000 mls @ 15 mls/hr IV .Q24H MAGDI Stop: 08/24/24 05:59 Last Infusion: 08/23/24 07:48 Dose: Infused Lactated Ringer's (Lr) 1,000 mls @ 60 mls/hr IV .[id number] MAGDI Stop: 08/23/24 22:39 Last Admin: 08/23/24 06:55 Dose: Not Given Cefazolin Sodium (Ancef 2000mg) 2,000 mg in 15 mls @ 3.75 mls/min IV PREOP MAGDI; Protocol Stop: 08/23/24 18:00 Last Admin: 08/23/24 07:50 Dose: 3.75 mls/min Promethazine HCl 6.25 mg/ (Sodium Chloride) 50.25 mls @ 204 mls/hr IV ONCE PRN PRN Reason: PACU Use Only-Nausea/Vomiting Stop: 08/23/24 15:01 Dexamethasone 8 mg/ Syringe 2 mls @ 1 mls/min IV NOW PRN PRN Reason: If stridor present Acetaminophen (Ofirmev) 1,000 mg in 100 mls @ 400 mls/hr IV Q8H PRN PRN Reason: MILD Pain (1,2,3) & Pre PT Stop: 08/24/24 12:06 Cefazolin Sodium (Ancef 2000mg) 2,000 mg in 15 mls @ 3.75 mls/min IV Q8H MAGDI; Protocol Stop: 08/23/24 23:48 Promethazine HCl (Phenergan) 12.5 mg in 50.5 mls @ 202 mls/hr IV Q6H PRN PRN Reason: Nausea And Vomiting Stop: 09/22/24 12:05 Dexamethasone 6 mg/ Syringe 1.5 mls @ 1 mls/min IV Q8H MAGDI Stop: 08/24/24 05:02 Last Admin: 08/23/24 13:13 Dose: 1 mls/min Influenza Virus Vaccine Quadrival (Do Not Administer Flu Vaccine) 1 each N/A PRN PRN PRN Reason: Notification Stop: 09/22/24 12:05 Lorazepam (Lorazepam 0.5 Mg Tab) 0.5 mg PO Q8H PRN PRN Reason: Sedation/Anxiety Stop: 09/22/24 12:05 Lorazepam (Lorazepam 2 Mg/1 Ml Vial) 0.5 mg IV Q8H PRN PRN Reason: Sedation/Anxiety Stop: 09/22/24 12:05 Magnesium Hydroxide (Magnesium Hydroxide Susp 30 Ml Udc) 30 ml PO Q24H PRN PRN Reason: Constipation Stop: 09/22/24 12:05 Metoclopramide HCl (Metoclopramide Hcl Inj 5 Mg/Ml 2 Ml Vial) 10 mg IV Q6H PRN PRN Reason: Nausea &/or Vomiting Stop: 09/22/24 12:05 Naloxone HCl (Naloxone Hcl 0.4 Mg/1 Ml Vial/Carp) 0.1 mg IV Q5M PRN PRN Reason: Oversedation/Resp depression Stop: 09/22/24 12:05 Ondansetron HCl (Ondansetron Inj 2 Mg/Ml 2 Ml Vial) 4 mg IV ONCE PRN PRN Reason: PACU Use Only-Nausea/Vomiting Stop: 08/23/24 15:01 Ondansetron HCl (Ondansetron Inj 2 Mg/Ml 2 Ml Vial) 4 mg IV Q6H PRN PRN Reason: Nausea &/or Vomiting Stop: 09/22/24 12:05 Ondansetron HCl (Ondansetron 4 Mg Od Tab) 4 mg PO Q6H PRN PRN Reason: Nausea Stop: 09/22/24 12:05 Pneumococcal Polyvalent Vaccine (Do Not Administer Pneumococcal Vaccine) 1 each N/A PRN PRN PRN Reason: Notification Stop: 09/22/24 12:05 Polyethylene Glycol (Polyethylene (Miralax) 17 Gm Pack) 17 gm PO Q6 MAGDI Stop: 09/23/24 05:59 Senna/Docusate Sodium (Docusate Sodium/Senna 50/8.6mg Tab) 2 tab PO HS MAGDI Stop: 09/22/24 20:59 Sodium Biphosphate/Sodium Phosphate (Sod Phosphate/Sod Biphosphate Enema 132 Ml Btl) 132 ml SC ONE PRN PRN Reason: Constipation Stop: 09/22/24 12:05 Tramadol HCl (Tramadol Hcl 50 Mg Tablet) 50 - 100 mg PO Q4H PRN PRN Reason: MOD/SEV Pain & Pre PT Stop: 09/22/24 12:05 ECG Additional Comments: I have independently reviewed and interpreted patient's admitting EKG which revealed: 61, NSR, qtc 392ms, no st or t wave change
[2024-08-23] MEDS: ACETAMINOPHEN 500 MG TAB PO PRN (19:21)
[2024-08-23] MEDS: ATORVASTATIN 40 MG TAB PO SCH (20:46)
[2024-08-23] MEDS: DOCUSATE SODIUM/SENNA 50/8.6MG TAB PO SCH (20:46)
[2024-08-23] MEDS: traMADol HCL 50 MG TABLET PO PRN (23:16)
[2024-08-24] MEDS: POLYETHYLENE (MIRALAX) 17 GM PACK PO SCH (05:53)
[2024-08-24] MEDS: ASPIRIN 81 MG ECTAB PO SCH (08:45)
[2024-08-24] MEDS ORDERED: lisinopril 20 MG TAB PO SCH (09:00)
[2024-08-24 09:44] VITALS: BP 132/78; PULSE 84; RESP 16; TEMP 97.9; O2SAT 96
--- NOTE | 2024-08-24 10:47 | Discharge Summary ---
Date of Service August 24, 2024 Admission HPI Per Admitting Provider This is an 83-year-old male patient describes neck and arm pain and failed course of nonoperative care is here for surgical invention. Principal Diagnosis Cervical spinal stenosis with myeloradiculopathy Discharge Data Allergies Allergy/AdvReac Type Severity Reaction Status Date / Time No Known Allergies Allergy Verified 08/23/24 06:46 Consultations 08/23/24 12:06 Consult Hospitalist Routine Procedures Performed Operation Date: 08/23/24 07:45 Actual Procedures p C5 Corpectomy, C4-C6 Fusion, Spinal Cord Monitoring(Not Applicable) - Vivek Costa DO Ordered Studies 08/23/24 FL cervical 2-3V Routine Hospital Course (1) Spinal stenosis, lumbar region with neurogenic claudication: Patient went anterior cervical corpectomy and fusion tolerated as well as taken the orthopedic for postoperative bed postop believe his symptoms are improved. Strength improving. Swallowing well. No hoarseness. Excellent strength testing. PARADISE drain decreasing. Subsidy discharged home. Discharge orders and instructions by the chart for further review. Total Time Total Time Spent Total Time Spent (In Minutes): 20 minutes Discharge Plan Discharge Items Patient Disposition: Home - Self-Care Reason For Visit: POSTOP Discharge Diagnosis: Cervical spinal stenosis with myeloradiculopathy Activity: As commented below Non-emergency contact: Primary Care Provider Call non-emergency contact if: you have any medication questions Follow-up/Referrals: Joyce Guadarrama PA-C [Primary Care Provider] - Diet: Regular Addtl Attending Provider Instructions: ACTIVITY RECOMMENDATIONS: SELF CARE INSTRUCTIONS AFTER CERVICAL FUSIONS 1. No smoking. Smoking drastically decreases the chance of a solid fusion. 2. No bending, lifting more than 5 pounds, or twisting (roll like a log when turning in bed). 3. You may shower 3 days after surgery. Thoroughly dry wound. Do not soak in the tub. 4. Cervical collar: Must be worn at all times including sleeping. You may remove the brace only to bath, eat and if you are sitting in a recliner. 5. Please walk as much as you can for exercise. Gradually increase the distance that you walk as your endurance increases. 6. You may return to previous diet. SPECIAL CARE INSTRUCTIONS: VERY IMPORTANT TO READ AND REVIEW A. Do not take any anti-inflammatory medications (i.e. Indocin, Advil, Aspirin, Naprosyn, Aleve, Motrin, etc.) as these may inhibit the chance of a solid fusion. Tylenol is okay to take. B. Your surgical incision has been closed with a cosmetic suture under the skin that will dissolve in about 6 weeks. In 14 days, you can use a pair of clean scissors and cut the suture that is left outside of the skin at the ends of your incision. C. Complications are uncommon, but please contact us if you have any signs or symptoms of: 1. wound infection (fever higher than 102.5 degrees F, redness, separation of wound, drainage, or increasing pain from the incision) 2. blood clots in legs (pain, swelling, redness and warmth in legs) 3. urinary tract infection (fever higher than 102.5 degrees, burning upon urination or increased frequency of urination) 4. nerve problems (inability to walk on your toes or heels, numbness, loss of bowel or bladder control) 5. any other symptoms that concern you. D. Please call the office at if you have any concerns or questions about your operation or recovery. MANAGING PAIN AFTER SPINAL SURGERY 1. Narcotic medication is intended for short-term use and will be provided for surgical pain. Surgical pain usually lasts for a period of 4-6 weeks. Narcotic medication includes Percocet, Vicodin, Darvocet, Tylenol #3 or Lortab. 2. Longer-term pain is more appropriately treated with non-narcotic medication such as Tylenol ES. 3. Muscle spasm is not appropriately treated with narcotics. Muscle relaxers such as Soma, Flexeril or Skelaxin can be used along with Tylenol ES. 4. Remember that we all live with some "aches and pains". This is not unusual or uncommon after an injury or as we get older. 5. We will provide appropriate medication within the normal guidelines of their prescribed use. We will also be very cautious and aware of potential abuse and extended duration of patients' medication needs. 6. Please allow 2-3 days to process refills. Prescriptions will not be mailed but must be picked up at the office. FOLLOW UP VISIT: Keep your scheduled follow-up appointment. Any questions, please call the office at . Pending Studies at Discharge: No Stand-Alone Forms: [facility], Smoking Cessation Medications and DC Order Prescriptions: New tramadol 50 mg tablet 50 mg PO Q6H PRN (Reason: pain, moderate) Qty: 30 0RF Continued lisinopril 20 mg Tablet 20 mg PO QAM aspirin 81 mg Tablet,Delayed Release (Dr/Ec) 81 mg PO QAM atorvastatin 10 mg Tablet 50 mg PO HS Discontinued naproxen sodium [Aleve] 220 mg Tablet 220 mg PO BID Discharge Orders: Discharge Order (Routine); Ordered 08/24/24 Ordered By: Vivek Costa Admission Data Admit Date/Time: 08/23/24 09:41 Attending Provider: Vivek Costa Admit Provider: Vivek Costa Primary Care Provider: Joyce Guadarrama Other Providers: Laurita Pride
--- NOTE | 2024-08-24 13:40 | Hospitalist Progress Note ---
Date of Service August 24, 2024 Assessment & Plan (1) Cervical radiculopathy: (2) Cervical spine arthritis: (3) Hyperlipidemia: (4) Hypertension: Plan: This is an 83 yr old M who has a significant PMH of chronic hearing loss/hard of hearing, HTN and HLD who presents for elective cervical procedure by Dr. Costa. He underwent C5 corpectomy with C4-C6 fusion and tolerated the procedure well. #Cervical Radiculopathy #S/P C4-C6 ACDF by Dr. Costa, POD #1 -pain, wound management per Dr. Costa -doing well this morning, encouraged incentive spirometry #HTN: post op blood pressure, low normal, hold lisinopril, resume in a.m. if pressure has normalized #HLD: chronic, stable, continue statin #DVT ppx: per attending I spent a total of 30 minutes in direct patient care, including [id number] time with the patient and/or family, reviewing medical records, ordering and reviewing diagnostic tests, and coordinating care with other healthcare providers. This time includes: history taking, physical examination, medical decision making, counseling, ECG interpretation, imaging interpretation, lab interpretation, orders, and education, excluding time spent in the performance of separately billed services. Admission and Anticipated Discharge Date Admission Date: August 23, 2024 Subjective Patient seen and examined at bedside. Patient doing well today, is looking forward to going home. Sitting comfortably in room on room air. Review of Systems Review of Systems: CONSTITUTIONAL: Patient denies fevers, chills, sweats and weight changes. EYES: Patient denies any visual symptoms. EARS, NOSE, AND THROAT: No difficulties with hearing. No symptoms of rhinitis or sore throat. CARDIOVASCULAR: Patient denies chest pains, palpitations, orthopnea and paroxysmal nocturnal dyspnea. RESPIRATORY: No dyspnea on exertion, no wheezing or cough. GI: No nausea, vomiting, diarrhea, constipation, abdominal pain, hematochezia or melena. : No urinary hesitancy or dribbling. No nocturia or urinary frequency. No abnormal urethral discharge. MUSCULOSKELETAL: No myalgias or arthralgias. mild post surgical pain NEUROLOGIC: No chronic headaches, no seizures. Patient denies numbness, tingling or weakness. PSYCHIATRIC: Patient denies problems with mood disturbance. No problems with anxiety. ENDOCRINE: No excessive urination or excessive thirst. DERMATOLOGIC: Patient denies any rashes or skin changes. Physical Exam Physical Exam: Gen: A&O 3 NAD HEENT: NCAT, EOMI, not icteric. External ears normal. No rhinorrhea. Moist mucous membranes. Neck: Supple, full range of motion, no observable masses, No meningeal sign. Lungs: No Respiratory distress. CV: RRR, no edema. Abdomen: Soft, nondistended, No rebound tenderness. MSK: No joint swelling, no redness. Noted post op cervical brace and surgical site with drain placement Skin: No rashes, petechiae, lesions. Normal color per patient. Neuro: Normal Gait, Grossly intact. Psych: Appropriate for situation. Results & Data Results & Data Vital Signs (Past 12 Hours) Vital Signs Temp Pulse Pulse Resp BP BP Pulse Ox 08/24/24 09:41 36.6 C 84 16 132/78 96 08/24/24 07:41 36.9 C 80 17 144/78 H 97 08/24/24 07:15 71 18 94 08/24/24 05:13 36.7 C 70 16 121/71 97 08/24/24 03:00 36.7 C 67 20 128/69 96 08/24/24 02:50 72 17 95 O2 Del Method O2 Flow Rate 08/24/24 09:41 Nasal Cannula 1 08/24/24 07:41 Nasal Cannula 1 08/24/24 07:15 Room Air 08/24/24 05:13 Room Air 08/24/24 03:00 Nasal Cannula 1 08/24/24 02:50 Nasal Cannula 1
== END 2024-08-24 12:45 | disposition home or self-care (01) | DRG 430 ==
LOC: ASU 06:11 → 3E 09:41